=== PATIENT | female | born 1955 | race Caucasian/White ===

== ENCOUNTER 2019-10-14 14:13 | Outpatient (CLI) | payer MEDICARE ==
[~2019-10-14] VITALS: Ht 154.9 cm; Wt 105.7 kg
[2019-10-14 14:46] VITALS: BP 177/96; Ht 154.9 cm; Wt 105.7 kg
== END 2019-10-14 15:10 | disposition home or self-care (01) ==
LOC: D.OPS 14:13
PROVIDERS: ATTEND Family Medicine
DX: M81.0 Age-related osteoporosis without current pathological fracture (principal)